=== PATIENT | female | born 1960 | race Caucasian/White ===

== ENCOUNTER 2019-12-07 07:01 | Emergency (ER) | payer OTHER ==
[~2019-12-07] VITALS: Ht 157.5 cm; Wt 113.4 kg
[2019-12-07 07:11] VITALS: BP 129/81
== END 2019-12-07 10:17 | disposition home or self-care (01) ==
LOC: ER 07:01 → EDBD 07:01 → ER 10:17
DX: H60.91 Unspecified otitis externa, right ear (principal); B35.6 Tinea cruris; N39.0 Urinary tract infection, site not specified; J32.9 Chronic sinusitis, unspecified; E11.9 Type 2 diabetes mellitus without complications; I10 Essential (primary) hypertension; Z88.8 Allergy status to other drugs, medicaments and biological substances
CPT/HCPCS: 70450; 70486

== ENCOUNTER 2022-01-01 03:48 | Emergency (ER) | payer OTHER ==
[~2022-01-01] VITALS: Ht 165.1 cm; Wt 95.3 kg
[2022-01-01 03:48] VITALS: BP 167/86
== END 2022-01-01 05:00 | disposition left against medical advice (07) ==
LOC: ER 03:48
DX: R07.81 Pleurodynia (principal); Z53.21 Procedure and treatment not carried out due to patient leaving prior to being seen by health care provider; W01.0XXA Fall on same level from slipping, tripping and stumbling without subsequent striking against object, initial encounter; Y93.89 Activity, other specified; Y92.89 Other specified places as the place of occurrence of the external cause; Y99.8 Other external cause status

== ENCOUNTER 2022-02-26 12:40 | Emergency (ER) | payer OTHER ==
[~2022-02-26] VITALS: Ht 167.6 cm; Wt 68.0 kg
[2022-02-26 12:40] VITALS: BP 137/72
== END 2022-02-26 19:09 | disposition left against medical advice (07) ==
LOC: EDBD 12:40 → ER 12:40
DX: R42 Dizziness and giddiness (principal); Z53.21 Procedure and treatment not carried out due to patient leaving prior to being seen by health care provider
CPT/HCPCS: 93005

== ENCOUNTER 2023-01-01 10:23 | Emergency (ER) | payer MEDICARE, OTHER ==
[~2023-01-01] VITALS: Ht 165.1 cm; Wt 98.0 kg
[2023-01-01] MEDS ORDERED: HYDROcodone-ACET 10/325MG TAB PO ONE (10:45)
[2023-01-01 10:59] VITALS: BP 161/80
[2023-01-01 11:10] LABS: Basophils # (auto) 0.1 10 ^3/uL (0-0.2); Eosinophils # (auto) 0.2 10 ^3/uL (0-0.8); Eosinophils % (auto) 2.8 % (0.0-7.0); Monocytes # (auto) 0.6 10 ^3/uL (0-1.3)
[2023-01-01 11:13] LABS: Basophils % (auto) 1.3 % (0.0-2.0); Hematocrit 37.4 % (36.0-46.0); Lymphocytes # (auto) 2.3 10 ^3/uL (0.4-5.4); Lymphocytes % (auto) 32.9 % (10.0-50.0); Mean Corpuscular Hemoglobin 26.1 pg (28.0-32.0); Mean Corpuscular Volume 81.5 fL (80.0-100.0); Monocytes % (auto) 8.7 % (0.0-12.0); Neutrophils # (auto) 3.7 10 ^3/uL (1.6-8.6); Neutrophils % (auto) 54.3 % (37.0-80.0); Nucleated Red Blood Cells % 0.2 %; Red Blood Cells 4.59 10^6/uL (4.0-5.20); Red Cell Distribution Width 17.1 % (11.8-14.3); White Blood Cell 6.9 10^3/uL (4.4-10.8)
[2023-01-01 11:28] LABS: Albumin 3.5 g/dL (3.4-5.0); Calcium 9.2 mg/dL (8.5-10.1); Potassium 3.7 mmol/L (3.5-5.1)
[2023-01-01 11:32] LABS: Bilirubin, Total 0.6 mg/dL (0.2-1.0); Total Protein 7.6 g/dL (6.4-8.2)
== END 2023-01-01 22:17 | disposition left against medical advice (07) ==
LOC: EDBD 10:23 → ER 10:23
DX: I10 Essential (primary) hypertension (principal); I24.9 Acute ischemic heart disease, unspecified; R07.89 Other chest pain; E11.9 Type 2 diabetes mellitus without complications; Z88.8 Allergy status to other drugs, medicaments and biological substances; W01.198A Fall on same level from slipping, tripping and stumbling with subsequent striking against other object, initial encounter; Y93.89 Activity, other specified; Y92.89 Other specified places as the place of occurrence of the external cause; Y99.8 Other external cause status
CPT/HCPCS: 36415; 70450; 71250; 74176; 80053; 84484; 85025; 93005

== ENCOUNTER 2023-01-05 08:27 | Emergency (ER) | payer MEDICARE ==
[~2023-01-05] VITALS: Ht 165.1 cm; Wt 96.3 kg
[2023-01-05] MEDS ORDERED: ACETAMINOPHEN 500 MG TAB PO ONE (12:00)
[2023-01-05] MEDS ORDERED: MORPHINE SULFATE INJ 2 MG/ml SYRG IM ONE (13:45)
[2023-01-05] MEDS ORDERED: ONDANSETRON ODT 4 MG TAB PO ONE (13:45)
[2023-01-05 13:54] VITALS: BP 145/75
== END 2023-01-05 14:03 | disposition home or self-care (01) ==
LOC: ER 08:27
DX: S20.211A Contusion of right front wall of thorax, initial encounter (principal); I10 Essential (primary) hypertension; E11.9 Type 2 diabetes mellitus without complications; I48.91 Unspecified atrial fibrillation; Z88.8 Allergy status to other drugs, medicaments and biological substances; W22.01XA Walked into wall, initial encounter; Y93.89 Activity, other specified; Y92.89 Other specified places as the place of occurrence of the external cause; Y99.8 Other external cause status
CPT/HCPCS: 71101

== ENCOUNTER 2024-01-08 22:10 | Emergency (ER) | payer MEDICARE, OTHER ==
[~2024-01-08] VITALS: Ht 165.1 cm; Wt 100.6 kg
[2024-01-08 22:24] VITALS: BP 157/66; PULSE 89; RESP 20; TEMP 98.4
[2024-01-08] MEDS: LIDOCAINE 1% HCL (LOCAL ANESTH.) INJ 20ML MDV IJ ONE (23:12)
[2024-01-08] MEDS: NEOMYCIN-BACITRACIN-POLYM UNITDOSE PKG TOP OINT TOP ONE (23:12)
[2024-01-08] MEDS ORDERED: TRAM50TA2 PO (23:18)
[2024-01-08] MEDS ORDERED: MUPI2OIN2 EX (23:18)
[2024-01-08] MEDS ORDERED: CEPH500T PO (23:18)
[2024-01-08 23:29] VITALS: O2SAT 98
[2024-01-08] MEDS: TETANUS-DIPTH-ACEL PERTUSSIS 0.5ML SYR Tdap IM ONE (23:45)
== END 2024-01-09 00:43 | disposition home or self-care (01) ==
LOC: ER 22:10
DX: S81.812A Laceration without foreign body, left lower leg, initial encounter (principal); E11.9 Type 2 diabetes mellitus without complications; I48.91 Unspecified atrial fibrillation; I11.0 Hypertensive heart disease with heart failure; I50.9 Heart failure, unspecified; Z79.899 Other long term (current) drug therapy; Z88.8 Allergy status to other drugs, medicaments and biological substances; W26.8XXA Contact with other sharp object(s), not elsewhere classified, initial encounter; Y93.89 Activity, other specified; Y92.89 Other specified places as the place of occurrence of the external cause; Y99.8 Other external cause status
CPT/HCPCS: 12002; 90471; 90715; 99283; J2001

== ENCOUNTER 2024-02-25 00:55 | Emergency (ER) | payer OTHER ==
[~2024-02-25] VITALS: Ht 165.1 cm; Wt 95.0 kg
[~2024-02-25 00:55] MED LIST: CEPH500T PO; MUPI2OIN2 EX; TRAM50TA2 PO
[2024-02-25 01:38] LABS: Basophils # (auto) 0.1 10 ^3/uL (0-0.2); Basophils % (auto) 1.2 % (0.0-2.0); Eosinophils # (auto) 0.2 10 ^3/uL (0-0.8); Eosinophils % (auto) 2.6 % (0.0-7.0); Hematocrit 43.4 % (36.0-46.0); Hemoglobin 14.6 g/dL (12.2-16.2); Lymphocytes # (auto) 2.9 10 ^3/uL (0.4-5.4); Lymphocytes % (auto) 31.3 % (10.0-50.0); Mean Corpuscular Hgb Conc. 33.6 g/dL (32.0-36.0); Mean Corpuscular Volume 86.1 fL (80.0-100.0); Monocytes # (auto) 0.5 10 ^3/uL (0-1.3); Monocytes % (auto) 5.5 % (0.0-12.0); Neutrophils # (auto) 5.4 10 ^3/uL (1.6-8.6); Neutrophils % (auto) 59.4 % (37.0-80.0); Nucleated Red Blood Cells % 0.1 %; Red Blood Cells 5.04 10^6/uL (4.0-5.20); Red Cell Distribution Width 17.5 % (11.8-14.3); White Blood Cell 9.1 10^3/uL (4.4-10.8)
[2024-02-25] MEDS: DexAMETHasone SOD PHOS 10MG/1ML VIAL INJ IM ONE (01:54)
[2024-02-25] MEDS: IPRATROPIUM BROM 0.5 MG/2.5ML INH SOL NEB ONE (01:57)
[2024-02-25] MEDS: ALBUTEROL SULF 2.5 MG/0.5ML(0.5%) NEB SOLN NEB ONE (01:57)
[2024-02-25 02:00] LABS: Alanine Aminotransferase 17 U/L (7-40); Albumin 4.1 g/dL (3.2-4.8); Alkaline Phosphatase 93 U/L (46-116); Anion Gap 7 (5-15); Aspartate Aminotransferase 18 U/L (13-40); BUN/Creatinine Ratio 10.3 (10.0-20.0); Bilirubin, Total 0.3 mg/dL (0.2-1.0); Blood Urea Nitrogen 11 mg/dL (9-23); Calcium 8.8 mg/dL (8.7-10.4); Carbon Dioxide 23 mmol/L (20-30); Chloride 108 mmol/L (98-107); Glucose 264 mg/dL (74-106); Potassium 3.4 mmol/L (3.5-5.1); Sodium 138 mmol/L (136-145); Total Protein 7.2 g/dL (5.7-8.2)
[2024-02-25 05:11] LABS: COVID19 ANTIGEN SOFIA FIA NEGATIVE (NEGATIVE); Rapid Influenza A Negative (Negative); Rapid Influenza B Negative (Negative)
[2024-02-25 05:35] VITALS: PULSE 78; RESP 18; O2SAT 98
[2024-02-25] MEDS ORDERED: DOXY-286 PO (05:40)
[2024-02-25] MEDS ORDERED: ALBU108A5 IN (05:40)
[2024-02-25 05:57] VITALS: BP 152/78; PULSE 79; RESP 18; TEMP 98.3; O2SAT 98
== END 2024-02-25 05:55 | disposition home or self-care (01) ==
LOC: ER 00:55
DX: J40 Bronchitis, not specified as acute or chronic (principal); I10 Essential (primary) hypertension; I48.91 Unspecified atrial fibrillation; E11.9 Type 2 diabetes mellitus without complications; R07.89 Other chest pain; Z20.822 Contact with and (suspected) exposure to COVID-19
CPT/HCPCS: 36415; 71045; 80053; 83880; 84484; 85025; 87426; 87804; 93005; 94640; 96372; 99285; J1100; J7644

== ENCOUNTER 2024-04-03 00:28 | Emergency (ER) | payer OTHER ==
[~2024-04-03] VITALS: Ht 162.6 cm; Wt 95.5 kg
[~2024-04-03 00:28] MED LIST changes: +ALBU108A5 IN; +DOXY-286 PO
[2024-04-03 00:55] VITALS: TEMP 98.2; O2SAT 100
[2024-04-03] MEDS: ONDANSETRON HCL 4 MG/2 ML VIAL IM ONE (03:08)
[2024-04-03] MEDS: HYDROmorphone HCL 2 MG/ML VL/or syr IM ONE (03:09)
[2024-04-03 04:33] VITALS: BP 139/71; PULSE 76; RESP 18
[2024-04-03] MEDS ORDERED: HYDR-4798 PO (05:35)
[2024-04-03] MEDS ORDERED: IBUP-1455 PO (05:35)
== END 2024-04-03 05:46 | disposition home or self-care (01) ==
LOC: ER 00:28
DX: S82.002A Unspecified fracture of left patella, initial encounter for closed fracture (principal); I10 Essential (primary) hypertension; E11.9 Type 2 diabetes mellitus without complications; I48.91 Unspecified atrial fibrillation; Z88.8 Allergy status to other drugs, medicaments and biological substances; W01.0XXA Fall on same level from slipping, tripping and stumbling without subsequent striking against object, initial encounter; Y93.89 Activity, other specified; Y92.89 Other specified places as the place of occurrence of the external cause; Y99.8 Other external cause status
CPT/HCPCS: 29505; 73562; 73700; 96372; 99285; J1170; J2405

== ENCOUNTER 2025-11-20 19:46 | Emergency (ER) | payer OTHER ==
[~2025-11-20] VITALS: Ht 165.1 cm; Wt 92.0 kg
[~2025-11-20 19:46] MED LIST changes: +HYDR-4798 PO; +IBUP-1455 PO
--- NOTE | 2025-11-20 20:40 | ED.PDOC ---
Musculoskeletal HPI Comments 65 y/o F, with PMHx of rheumatoid arthritis and DM presents to the ED for CC of bilateral foot pain. Patient states, she has had worsening open sores to the bilateral phalanges of her feet. Patient reports, pain with ambulation. Chief Complaint: Lower Extremity Time Seen by MD: 20:35 Primary Care Provider: UNKNOWN Reviewed Notes: Nurses Notes, Medications, Allergies Allergies: Coded Allergies: Clindamycin (Verified Allergy, Intermediate, 11/20/25) Lisinopril (Verified Allergy, Intermediate, 11/20/25) Nitrofurantoin (Verified Allergy, Intermediate, 11/20/25) Cephalexin (Verified Allergy, Mild, 11/20/25) NSAIDs (Verified Allergy, Unknown, 02/26/22) Uncoded Allergies: CO-TRIMOXAZOLE (Allergy, Intermediate, 11/20/25) Home Meds Active Scripts Ibuprofen Micronized (Ibuprofen) 800 Mg Tab, 800 MG PO Q8HPRN PRN, #20 TAB Prov:[facility] 04/03/24 Hydrocodone-Acetaminophen (Hydrocodone Bitartrate/AC 10-325 mg) 1 Tab Tab, 1 TAB PO Q6HPRN PRN, #15 TAB Prov:[facility] 04/03/24 Albuterol Sulfate (Albuterol Sulfate Hfa) 108 Mcg/Act Aer, 108 MCG IN Q6HP PRN, #1 AER Prov:WELLINGTON DEL CASTILLO MD 02/25/24 Doxycycline Hyclate (DOXYCYCLINE HYCLATE) 100 Mg Tab, 1 TAB PO BID, #14 TAB Prov:WELLINGTON DEL CASTILLO MD 02/25/24 Mupirocin (Pseudomonas Fluores (Mupirocin) 2 % Oin, 1 APPLIC EX TID, #15 MG Apply to the affected area Prov:KATHERINE FITCHA [facility] [employer] 01/09/24 Tramadol Hcl (Tramadol Hcl) 50 Mg Tab, 50 MG PO Q6H, #4 TAB as needed for severe pain Prov:JIN FITCH [facility] [employer] [facility] 01/09/24 Cephalexin Monohydrate (Cephalexin) 500 Mg Tab, 1 TAB PO QID for 10 Days, #40 TAB Prov:JIN FITCH [facility] [employer] 01/09/24 Information Source: Patient Mode of Arrival: Ambulatory Location: Bilateral Extremity Location: Foot (PHALANX sores) Timing: Days Prehospital treatment: None Severity: Moderate Able to Move Extremity: Yes Bear Weight: Limited Pain: Moderate Mechanism: Spontaneous Circumstances: Spontaneous Onset of Symptoms: Spontaneous Symptoms: Pain DVT Risk Factors: NONE Associated signs and symptoms: Foot pain Past Medical History PAST MEDICAL HISTORY: AFIB, DM, HTN Surgical History: Denies all surgeries 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 Family History Family History: Reviewed,noncontributory to illness Social History Smoker: Non-Smoker Alcohol: Denies ETOH Use Drugs: Marijuana, Methamphetamine Lives In: Home Constitutional: denies: chills, diaphoresis, fatigue, fever, malaise, sweats, weakness, others EENTM: denies: blurred vision, double vision, ear bleeding, ear discharge, ear drainage, ear pain, ear ringing, eye pain, eye redness, hearing loss, mouth pain, mouth swelling, nasal discharge, nose bleeding, nose congestion, nose pain, photophobia, tearing, throat pain, throat swelling, voice changes, others Respiratory: denies: cough, hemoptysis, orthopnea, SOB at rest, shortness of breath, SOB with excertion, stridor, wheezing, others Cardiovascular: denies: chest pain, dizzy spells, diaphoresis, Dyspnea on ex ertion, edema, irregular heart beat, left arm pain, lightheadedness, palpitations, PND, syncope, others Gastrointestinal: denies: abdomen distended, abdominal pain, blood streaked bowels, constipated, diarrhea, dysphagia, difficulty swallowing, hematemesis, melena, nausea, poor appetite, poor fluid intake, rectal bleeding, rectal pain, vomiting, others Genitourinary: denies: abnormal vagina bleeding, burning, dyspareunia, dysuria, flank pain, frequency, hematuria, incontinence, pain, , vagina discharge, urgency, others Neurological: denies: dizziness, fainting, headache, left sided numbness, left sided weakness, numbness, paresthesia, pre-existing deficit, right sided numbness, right sided weakness, seizure, speech problems, tingling, tremors, weakness, others Musculoskeletal: denies: back pain, gout, joint pain, joint swelling, muscle pain, muscle stiffness, neck pain, others Integumetry: denies: bruises, change in color, change in hair/nails, dryness, laceration, lesions, lumps, rash, wounds, others Allergic/Immunocompromised: denies: Difficulty Healing, Frequent Infections, Hives, Itching, others Hematologic/Lymphatic: denies: anemia, blood clots, easy bleeding, easy bruising, swollen glands, others Endocrine: denies: excessive hunger, excessive sweating, excessive thirst, excessive urination, flushing, intolerance to cold, intolerance to heat, unexplained weight gain, unexplained weight loss, others Psychiatric: denies: anxiety, bipolar disorder, depression, hopeless, panic disorder, schizophrenia, sleepless, suicidal, others All Other Systems: Reviewed and Negative Physical Exam General Appearance: No Apparent Distress, Normal HEENT: Normal ENT Inspection, Pharynx Normal Neck: Full Range of Motion, Non-Tender, Normal Inspection Respiratory: Chest Non-Tender, Lungs Clear, No Accessory Muscle Use, No Respiratory Distress, Normal Breath Sounds Cardiovascular: No Edema, No JVD, No Murmur, No Gallop, Normal Peripheral Pu lses, Tachycardia Breast Exam: Deferred Gastrointestinal: No Organomegaly, Non Tender, No Pulsatile Mass, Normal Bowel Sounds, Soft Genitalia: Deferred Pelvic: Deferred Rectal: Deferred Extremities: No calf tenderness, Normal capillary refill, Normal inspection, Normal range of motion, Non-tender, No pedal edema Musculoskeletal : Location: Left Extremity Location: Toe 4 Apperance: Other (CALUS TO DISTAL PAD) Neurologic: Alert, relay tester II-XII nml as Tested, No Motor Deficits, Normal Affect, Normal Mood, No Sensory Deficits Cerebellar Function: Normal Reflexes: Normal Skin: Dry, Normal Color, Warm Lymphatic: No Adenopathy Was a procedure done? Was a procedure done?: No Differential Diagnosis EXT Differential Diagnosis: Cellulitis X-Ray, Labs, Meds, VS Vital Signs Date Time Temp Pulse Resp B/P (MAP) Pulse Ox O2 Delivery O2 Flow Rate FiO2 11/20/25 21:37 78 11/20/25 21:18 97.7 80 17 140/72 (94) 98 97.7 11/20/25 19:52 98.7 91 18 148/98 96 98.7 Lab Test 11/20/25 20:39 Range/Units White Blood Count 7.4 4.4-10.8 10^3/uL Red Blood Count 4.62 4.0-5.20 10^6/uL Hemoglobin 13.7 12.2-16.2 g/dL Hematocrit 41.1 36.0-46.0 % Mean Corpuscular Volume 88.9 80.0-100.0 fL Mean Corpuscular Hemoglobin 29.7 28.0-32.0 pg Mean Corpuscular Hemoglobin Concent 33.4 32.0-36.0 g/dL Red Cell Distribution Width 15.1 H 11.8-14.3 % Platelet Count 210 140-450 10^3/uL Mean Platelet Volume 9.5 6.9-10.8 fL Neutrophils (%) (Auto) 54.8 37.0-80.0 % Lymphocytes (%) (Auto) 34.8 10.0-50.0 % Monocytes (%) (Auto) 6.7 0.0-12.0 % Eosinophils (%) (Auto) 2.5 0.0-7.0 % Basophils (%) (Auto) 1.2 0.0-2.0 % Neutrophils # (Auto) 4.1 1.6-8.6 10 ^3/uL Lymphocytes # (Auto) 2.6 0.4-5.4 10 ^3/uL Monocytes # (Auto) 0.5 0-1.3 10 ^3/uL Eosinophils # (Auto) 0.2 0-0.8 10 ^3/uL Basophils # (Auto) 0.1 0-0.2 10 ^3/uL Nucleated Red Blood Cells 0.2 % Sodium Level 143 136-145 mmol/L Potassium Level 3.4 L 3.5-5.1 mmol/L Chloride Level 112 H 98-107 mmol/L Carbon Dioxide Level 19 L 20-31 mmol/L Anion Gap 12 5-15 Blood Urea Nitrogen 8 L 9-23 mg/dL Creatinine 1.17 H 0.550-1.02 mg/dL Glomerular Filtration Rate Calc 51 >90 mL/min BUN/Creatinine Ratio 6.8 L 10.0-20.0 Serum Glucose 200 H 74-106 mg/dL Calcium Level 8.1 L 8.7-10.4 mg/dL [facility] [id number] [place] [id number] Ph: [phone] DIAGNOSTIC IMAGING Diagnostic Imaging Report : [id number] Signed PATIENT: CLIFFORD BOBO ACCT: [id number] UNIT: [id number] : 1960 LOC: ER ROOM / BED: / AGE / SEX: 65 / F ADM STATUS: REG ER SERVICE 30 ORDERING PHYSICIAN: SUSHANT FULLER MD PROCEDURE(s): RFOT2 - R FOOT 2 VIEW XRAY REASON: pain ORDER NUMBER(s): [id number], ACCESSION NUMBER(s): [id number] EXAM: XY R FOOT 2 VIEW XRAY INDICATION: pain TECHNIQUE:: 2 views of the right foot COMPARISON: None FINDINGS/IMPRESSION: Indeterminate possible osseous erosion versus sequelae of subacute fracture of the 3rd metatarsal head/ neck. Posterior calcaneal tuberosity spurring. ATED BY: DANIEL BRUNS MD DICTATED DATE/TIME: 11/20/252120 SIGNED BY: DANIEL BURNS MD SIGNED DATE/TIME: 11/20/252120 CC: [place] [id number] Ph: [phone] DIAGNOSTIC IMAGING Diagnostic Imaging Report : [id number] Signed PATIENT: CLIFFORD BOBO ACCT: [id number] UNIT: [id number] : 1960 LOC: ER ROOM / BED: / AGE / SEX: 65 / F ADM STATUS: REG ER SERVICE 30 ORDERING PHYSICIAN: SUSHANT FULLER MD PROCEDURE(s): LFOT2 - L FOOT 2 VIEW XRAY REASON: pain ORDER NUMBER(s): [id number], ACCESSION NUMBER(s): [id number] CLINICAL INDICATION: pain TECHNIQUE: XYXY L FOOT 2 VIEW XRAY COMPARISON: None FINDINGS/IMPRESSION: : Chronic appearing fracture at the base of the left 4th proximal phalanx. Otherwise no definite fracture seen. Alignment is anatomic. ATED BY: SHAYNE WAYNE MD DICTATED DATE/TIME: 11/20/252120 SIGNED BY: SHAYNE WAYNE MD SIGNED DATE/TIME: 11/20/252120 CC: Time of 1ST Reevaluation: 21:05 Reevaluation 1ST: Unchanged Reevaluation 2ND: Eloped Patient Education/Counseling: Diagnosis, Treatment Family Education/Counseling: No Family Present Comments This is a patient who is diabetic and noncompliant. She admittedly uses methamphetamine. She is tachycardic as a result of the recent methamphetamine use before coming to the emergency room. She reports bilateral feet pain especially of the toes. Her blood sugar has not been well controlled. On examination patient does not have any active signs of infection. I suspect patient has diabetic neuropathy. X-rays of the feet shows some chronic fracture and chronic changes. Labs are unremarkable. However before I got assessed the patient for re-evaluation she had eloped Additional Information Reviewed patient's previous visit(s): 04/03/25 DX:PATELLA FX The following tests were ordered, and results were reviewed by me: CBC, CMP, LACTIC ACID, UA, BMP, RIGHT FOOT XY, LEFT FOOT XY I reviewed and agreed with the following test results read by other provider: RIGHT FOOT XY, LEFT FOOT XY I discussed treatments and results with medical personnel and: PATIENT Comprehensive systems review obtained and negative except for what is stated in the HPI. Departure 1 Departure Time of Disposition: 22:31 Impression: Primary Impression: Pain in both feet Additional Impressions: Neuropathy Noncompliance Substance abuse Disposition: LEFT AWOL/ELOPED Condition: Other (unknown) Critical Care Note Critical Care Time?: No Stability Stability form required: No Heart Score Heart Score: Heart Score Response (Comments) Value History N/A 0 EKG N/A 0 Age N/A 0 Risk Factors N/A 0 Troponin N/A 0 Total 0 I personally scribed for SUSHANT FULLER MD ([email or web address]) on 11/20/25 at 20:40. Electronically submitted by Maddy Rahman ([email or web address]). I personally scribed for SUSHANT FULLER MD ([email or web address]) on 11/20/25 at 20:47. Electronically submitted by Maddy Rahman ([employer] Remark[employer]). I personally scribed for SUSHANT FULLER MD ([email or web address]) on 11/20/25 at 20:48. Electronically submitted by Maddy Rahman (Motility CountSSmarter Remarketer). I personally scribed for SUSHANT FULLER MD ([email or web address]) on 11/20/25 at 21:34. Electronically submitted by Maddy Rahman ([email or web address]). SUSHANT FULLER MD Nov 20, 2025 20:40
[2025-11-20 21:04] LABS: Sodium 143 mmol/L (136-145)
[2025-11-20 21:05] LABS: Anion Gap 12 (5-15)
[2025-11-20 21:11] LABS: BUN/Creatinine Ratio 6.8 (10.0-20.0)
[2025-11-20 21:12] LABS: Blood Urea Nitrogen 8 mg/dL (9-23); Calcium 8.1 mg/dL (8.7-10.4); Carbon Dioxide 19 mmol/L (20-31); Chloride 112 mmol/L (98-107); Glucose 200 mg/dL (74-106); Hematocrit 41.1 % (36.0-46.0); Hemoglobin 13.7 g/dL (12.2-16.2); Mean Corpuscular Hemoglobin 29.7 pg (28.0-32.0); Mean Corpuscular Volume 88.9 fL (80.0-100.0); Nucleated Red Blood Cells % 0.2 %; Potassium 3.4 mmol/L (3.5-5.1)
[2025-11-20 21:18] VITALS: BP 140/72; RESP 17; TEMP 97.7; O2SAT 98
--- NOTE | 2025-11-20 21:23 | DVH ---
EXAM: XY R FOOT 2 VIEW XRAY INDICATION: pain TECHNIQUE:: 2 views of the right foot COMPARISON: None FINDINGS/IMPRESSION: Indeterminate possible osseous erosion versus sequelae of subacute fracture of the 3rd metatarsal head/ neck. Posterior calcaneal tuberosity spurring.
--- NOTE | 2025-11-20 21:23 | DVH ---
CLINICAL INDICATION: pain TECHNIQUE: XYXY L FOOT 2 VIEW XRAY COMPARISON: None FINDINGS/IMPRESSION: : Chronic appearing fracture at the base of the left 4th proximal phalanx. Otherwise no definite fracture seen. Alignment is anatomic.
[2025-11-20 21:37] VITALS: PULSE 78
== END 2025-11-20 22:24 | disposition left against medical advice (07) ==
LOC: ER 19:46
DX: M79.672 Pain in left foot (principal); M79.671 Pain in right foot; F15.90 Other stimulant use, unspecified, uncomplicated; I10 Essential (primary) hypertension; E11.40 Type 2 diabetes mellitus with diabetic neuropathy, unspecified; F12.90 Cannabis use, unspecified, uncomplicated; I48.91 Unspecified atrial fibrillation; Z79.899 Other long term (current) drug therapy; Z88.6 Allergy status to analgesic agent; Z88.2 Allergy status to sulfonamides; Z88.1 Allergy status to other antibiotic agents
CPT/HCPCS: 36415; 73620; 80048; 85025